=== PATIENT | male | born 1945 | race Caucasian/White ===

== ENCOUNTER 2018-10-30 10:00 | Outpatient (RCR) | payer MEDICARE, OTHER, SELFPAY ==
--- NOTE | 2018-09-26 13:28 | PT.OIE ---
Current Diagnoses Malignant neoplasm of prostate (09/24/18) Stress incontinence (female) (male) (09/24/18) Provider Visit Care Team Role Provider Type Hemant Pennington MD Family Provider Non-Staff Primary Care Provider Specialty: Medical Address: [address] [place] [address], [place], [address] Email: Thanh Simon Attending Provider Non-Staff Specialty: Urology Address: [address] [place] [address], [address] Email: Physical Therapy Initial Evaluation PT-OP-A Visit Information Start: 09/25/18 13:58 Freq: Status: Active Protocol: Document 09/24/18 14:30 [facility] (Rec: 09/25/18 14:00 [facility] [email or web address]) Out-Patient Physical Therapy Visit Information Visit Information Visit Type Initial Evaluation Visit Note 73 year old male 4 months status post radical prostectomy with residual urinary incontinence Visit Start Time 13:45 Visit Stop Time 14:30 Total Visit Minutes 45 Visit Number 1 Evaluation Information Evaluation Date 09/24/18 PT-OP-B Current Condition Start: 09/25/18 13:58 Freq: Status: Active Protocol: Document 09/24/18 13:45 [facility] (Rec: 09/26/18 13:28 [facility] [email or web address]) Current Condition History of Current Condition Onset Date s/p RALP 05/09/18 Current Complaints urinary incontinence, using 2 pads per day, depends at night History of Current Condition 73 year male who under went prostate surgery 05/09/18 with resulting urinary incontinence . He reports his symptoms have been slightly improved since surgery but he is still noting leakage at night and is wearing depends. He also reports if he has been sitting to long and he goes to stand he will notice leakage. Leakage also occurs with walking and he is trying to walk 2-3 miles per day. Shawn reports he goes through 2 pads per day. PT-OP-I Pelvic Floor Start: 09/25/18 13:58 Freq: Status: Active Protocol: Document 09/24/18 13:45 [facility] (Rec: 09/26/18 13:28 [facility] [email or web address]) Pelvic Floor Assessment Urine Pelvic Floor Surgery No Urinary Symptoms Urge Sensation Leakage Size Medium Leakage Cause Exercise Other Leakage Causes leakage occurs at night , wearing depends Pads Used In 24 Hours 2 pads Urine Pad Type Maxi Pad Depends Pelvic Clock Pelvic Clock Other rectal examination reveals weakness of the levator ani, no c/o pain SEMG (uV) Baseline 8.5 10 Second Contraction 9.5 Recruitment Pattern Fair Relaxation Poor/Slow Holding Poor/Slow Stability of Hold Poor/Slow SEMG Stability of Rest Poor/Slow Contraction Ability Voluntary Contraction Weak Voluntary Relaxation Weak Manual Muscle Testing Left 2 Manual Muscle Testing Right 2 Manual Muscle Testing Anterior 2 Manual Muscle Testing Posterior 2 Muscle Endurance (Seconds) 3 Number of Quick Contractions In 10 4 Seconds Comments Pelvic Floor Comments pelvic floor evaluated rectally today, with EMG biofeedback average contraction is 9.6 uv and max of 25.9 uv. His resting tone is 8.5 uv PT-OP-Q Treatments Start: 09/25/18 13:58 Freq: Status: Active Protocol: Document 09/24/18 13:45 [facility] (Rec: 09/26/18 13:28 [facility] [email or web address]) Therapeutic Exercises Supine Exercises 1 Supine Exercise Name pelvic floor long holds Side bilateral Reps/Minutes 10 seconds on 10 seconds off x 10 reps PT-OP-T Assessment and Plan Start: 09/25/18 13:58 Freq: Status: Active Protocol: Document 09/24/18 13:45 [facility] (Rec: 09/26/18 13:28 [facility] [email or web address]) Physical Therapy Assessment Rehab Potential Rehabilitation Potential Good Evaluation Complexity Number of Personal Factors/Comorbidities 0 Number of Body Systems Impaired 1-2 Clinical Presentation at Evaluation Stable Impairments Impairments Strength Tone Other Impairments urinary leakage Goals Four Impairment Decreased endurance of the levator ani at 4 second hold time Short Term Goal (STG) Improve endurance to 10 second hold time in supine STG Duration 5 weeks Three Impairment weakness of the levator ani 2/ 5 MMT Short Term Goal (STG) Shawn is able to demonstrate improved facilitation of the pelvic floor and he is able to feel the anterior pelvic floor with a contraction STG Duration 4 weeks Senior Hardware Design Engineer Goal (LTG) Improve strength of the pelvic floor to 4/5 MMT for improved support of the bladder and external sphincter. LTG Duration 8 weeks Two Impairment urinary leakage at night, wearing depends at night Senior Hardware Design Engineer Goal (LTG) Shawn is able to sleep through the night staying dry and without using depends LTG Duration 8 weeks + One Impairment urinary leakage during the day limiting activity Senior Hardware Design Engineer Goal (LTG) Decrease leakage from use of 2 pads per day to no pads per day LTG Duration 8 weeks Assessment Summary Assessment Shawn presents to physical therapy today with symptoms of urinary incontinence following his RALP procedure 05/09/18. He reports that he has noticed some improvement with his incontinence since surgery but it has been slow and he is seeking out Physical Therapy to help improve the strength of his pelvic floor for improved control of his bladder. He is currently going through approximately 2 pads per day and is wearing depends at night. Leakage during the day occurs with transitions from sit-stand and with walking. With pelvic floor examination there is considerable weakness in the levator ani athough is he able to contract throught the rectal clock. He tends to substitute with his gluteals and needed verbal cuing today to isolate the pelvic floor. He is also elevated in his resting tone today at 8.5 uv on EMG biofeedback. Treatment will emphazise neuromuscular awareness of the pelvic floor, endurance training, EMG biofeedback for assistance in facilitating the pelvic floor, and progression to functional dynamic core stabilization. Physical Therapy Plan Frequency and Duration Frequency of Treatment 1x/Week Duration of Treatment 8 Plan of Care Start Date 09/24/18 Plan of Care End Date 11/19/18 Therapeutic Interventions Therapeutic Interventions Home Exercise Program Neuromuscular Re-education Patient/Caregiver Education Self-Care/Home Management Therapeutic Exercises Modalities Biofeedback Next Visit Focus/Plan Next Note Type Treatment Note Next Visit Plan Begin working on hip stabilization to help with pelvic floor recruitment
--- NOTE | 2018-09-26 13:29 | PT.OPPOC ---
Current Diagnoses Malignant neoplasm of prostate (09/24/18) Stress incontinence (female) (male) (09/24/18) Provider Visit Care Team Role Provider Type Hemant Pennington MD Family Provider Non-Staff Primary Care Provider Specialty: Medical Address: [address] [place] [address], [place], [address] Email: Thanh Simon Attending Provider Non-Staff Specialty: Urology Address: [address] [place] [address], [address] Email: Plan Of Care PT-OP-T Assessment and Plan Start: 09/25/18 13:58 Freq: Status: Active Protocol: Document 09/24/18 13:45 [facility] (Rec: 09/26/18 13:28 [facility] [email or web address]) Physical Therapy Assessment Rehab Potential Rehabilitation Potential Good Evaluation Complexity Number of Personal Factors/Comorbidities 0 Number of Body Systems Impaired 1-2 Clinical Presentation at Evaluation Stable Impairments Impairments Strength Tone Other Impairments urinary leakage Goals Four Impairment Decreased endurance of the levator ani at 4 second hold time Short Term Goal (STG) Improve endurance to 10 second hold time in supine STG Duration 5 weeks Three Impairment weakness of the levator ani 2/ 5 MMT Short Term Goal (STG) Shawn is able to demonstrate improved facilitation of the pelvic floor and he is able to feel the anterior pelvic floor with a contraction STG Duration 4 weeks Halfway Goal (LTG) Improve strength of the pelvic floor to 4/5 MMT for improved support of the bladder and external sphincter. LTG Duration 8 weeks Two Impairment urinary leakage at night, wearing depends at night Halfway Goal (LTG) Shawn is able to sleep through the night staying dry and without using depends LTG Duration 8 weeks + One Impairment urinary leakage during the day limiting activity Halfway Goal (LTG) Decrease leakage from use of 2 pads per day to no pads per day LTG Duration 8 weeks Assessment Summary Assessment Shawn presents to physical therapy today with symptoms of urinary incontinence following his RALP procedure 05/09/18. He reports that he has noticed some improvement with his incontinence since surgery but it has been slow and he is seeking out Physical Therapy to help improve the strength of his pelvic floor for improved control of his bladder. He is currently going through approximately 2 pads per day and is wearing depends at night. Leakage during the day occurs with transitions from sit-stand and with walking. With pelvic floor examination there is considerable weakness in the levator ani although is he able to contract throughout the rectal clock. He tends to substitute with his gluteals and needed verbal cuing today to isolate the pelvic floor. He is also elevated in his resting tone today at 8.5 uv on EMG biofeedback. Treatment will emphasize neuromuscular awareness of the pelvic floor, endurance training, EMG biofeedback for assistance in facilitating the pelvic floor, and progression to functional dynamic core stabilization. Physical Therapy Plan Frequency and Duration Frequency of Treatment 1x/Week Duration of Treatment 8 Plan of Care Start Date 09/24/18 Plan of Care End Date 11/19/18 Therapeutic Interventions Therapeutic Interventions Home Exercise Program Neuromuscular Re-education Patient/Caregiver Education Self-Care/Home Management Therapeutic Exercises Modalities Biofeedback Next Visit Focus/Plan Next Note Type Treatment Note Next Visit Plan Begin working on hip stabilization to help with pelvic floor recruitment Plan of Care Dates Plan of Care Start Date 09/24/18 Plan of Care End Date 11/19/18 Please Sign and Return: I have reviewed this Plan of Care and certify that the skilled therapy services above are required to meet the patient?s needs. Physician Signature Date Printed Name and Credentials Clinical Instructor Signature Printed Name and Credentials
--- NOTE | 2018-10-16 14:08 | PT.OTN ---
Current Diagnoses Malignant neoplasm of prostate (10/16/18) Stress incontinence (female) (male) (10/16/18) Physical Therapy Treatment Note PT-OP-A Visit Information Start: 09/25/18 13:58 Freq: Status: Active Protocol: Document 10/16/18 14:02 [facility] (Rec: 10/16/18 14:07 [facility] [email or web address]) Out-Patient Physical Therapy Visit Information Visit Information Visit Type Re-Evaluation Visit Start Time 11:30 Visit Stop Time 12:15 Total Visit Minutes 45 Visit Number 2 PT-OP-B Current Condition Start: 09/25/18 13:58 Freq: Status: Active Protocol: Document 09/24/18 13:45 [facility] (Rec: 09/26/18 13:28 [facility] [email or web address]) Current Condition History of Current Condition Onset Date s/p RALP 05/09/18 Current Complaints urinary incontinence, using 2 pads per day, depends at night History of Current Condition 73 year male who under went prostate surgery 05/09/18 with resulting urinary incontinence . He reports his symptoms have been slightly improved since surgery but he is still noting leakage at night and is wearing depends. He also reports if he has been sitting to long and he goes to stand he will notice leakage. Leakage also occurs with walking and he is trying to walk 2-3 miles per day. Shawn reports he goes through 2 pads per day. PT-OP-C Subjective Start: 09/25/18 13:58 Freq: Status: Active Protocol: Document 10/16/18 14:07 [facility] (Rec: 10/16/18 14:08 [facility] [email or web address]) OP-PT Subjective Patient Comments Patient Comments Pt reports he is down to 1 pad per day now and is using that same pad at night. No longer c/o leaking with walking or with sit-stand transitions. He is happy he is progressing Patient Reported Progress Improving PT-OP-I Pelvic Floor Start: 09/25/18 13:58 Freq: Status: Active Protocol: Document 09/24/18 13:45 [facility] (Rec: 09/26/18 13:28 [facility] [email or web address]) Pelvic Floor Assessment Urine Pelvic Floor Surgery No Urinary Symptoms Urge Sensation Leakage Size Medium Leakage Cause Exercise Other Leakage Causes leakage occurs at night , wearing depends Pads Used In 24 Hours 2 pads Urine Pad Type Maxi Pad Depends Pelvic Clock Pelvic Clock Other rectal examination reveals weakness of the levator ani, no c/o pain SEMG (uV) Baseline 8.5 10 Second Contraction 9.5 Recruitment Pattern Fair Relaxation Poor/Slow Holding Poor/Slow Stability of Hold Poor/Slow SEMG Stability of Rest Poor/Slow Contraction Ability Voluntary Contraction Weak Voluntary Relaxation Weak Manual Muscle Testing Left 2 Manual Muscle Testing Right 2 Manual Muscle Testing Anterior 2 Manual Muscle Testing Posterior 2 Muscle Endurance (Seconds) 3 Number of Quick Contractions In 10 4 Seconds Comments Pelvic Floor Comments pelvic floor evaluated rectally today, with EMG biofeedback average contraction is 9.6 uv and max of 25.9 uv. His resting tone is 8.5 uv PT-OP-Q Treatments Start: 09/25/18 13:58 Freq: Status: Active Protocol: Document 10/16/18 14:02 [facility] (Rec: 10/16/18 14:07 [facility] [email or web address]) Therapeutic Exercises Supine Exercises 4 Supine Exercise Name roll outs with theraband Reps/Minutes 3 x 10 reps 3 Supine Exercise Name ball squeeze Reps/Minutes 3 x 10 reps 2 Supine Exercise Name pelvic floor quick contractions 1 Supine Exercise Name pelvic floor long holds Side bilateral Reps/Minutes 10 seconds on 10 seconds off x 10 reps Standing Exercises 1 Standing Exercise Name pelvic floor squeeze with functional activities such as sit to stand Self-Care/Home Management Treatment Education Patient Education Body Mechanics Home Exercise Program Other Education yanna mechanics education for exhale with contraction and proper lifting position to avoid downward strain on the pelvic floor Pelvic floor strengthening in functional positions such as squating PT-OP-T Assessment and Plan Start: 09/25/18 13:58 Freq: Status: Active Protocol: Document 10/16/18 14:02 [facility] (Rec: 10/16/18 14:07 [facility] [email or web address]) Physical Therapy Assessment Assessment Summary Assessment Good increase in pelvic floor strength in the past 3 weeks. His average on Biofeedback has increased to 22.6 uv and max of 48 uv today. Symptoms improving. No longer using depends at night and down to 1 pad per day. Pt may cut down to every other week as traveling from [facility] takes all day for him Physical Therapy Plan Frequency and Duration Frequency of Treatment 1x/Week Duration of Treatment 8 Plan of Care Start Date 09/24/18 Plan of Care End Date 11/19/18 Therapeutic Interventions Therapeutic Interventions Home Exercise Program Neuromuscular Re-education Patient/Caregiver Education Self-Care/Home Management Therapeutic Exercises Modalities Biofeedback Next Visit Focus/Plan Next Note Type Treatment Note Next Visit Plan review new exercises and work on functional exercises in standing
--- NOTE | 2018-10-30 14:31 | PT.OTN ---
Current Diagnoses Malignant neoplasm of prostate (10/30/18) Stress incontinence (female) (male) (10/30/18) Physical Therapy Treatment Note PT-OP-A Visit Information Start: 09/25/18 13:58 Freq: Status: Active Protocol: Document 10/30/18 10:00 [facility] (Rec: 10/30/18 10:01 [facility] [id number]) Out-Patient Physical Therapy Visit Information Visit Information Visit Type Treatment Note Visit Start Time 10:00 Visit Stop Time 10:45 Total Visit Minutes 45 Visit Number 3 Evaluation Information Evaluation Date 09/24/18 PT-OP-B Current Condition Start: 09/25/18 13:58 Freq: Status: Active Protocol: Document 09/24/18 13:45 [facility] (Rec: 09/26/18 13:28 [facility] [email or web address]) Current Condition History of Current Condition Onset Date s/p RALP 05/09/18 Current Complaints urinary incontinence, using 2 pads per day, depends at night History of Current Condition 73 year male who under went prostate surgery 05/09/18 with resulting urinary incontinence . He reports his symptoms have been slightly improved since surgery but he is still noting leakage at night and is wearing depends. He also reports if he has been sitting to long and he goes to stand he will notice leakage. Leakage also occurs with walking and he is trying to walk 2-3 miles per day. Shawn reports he goes through 2 pads per day. PT-OP-C Subjective Start: 09/25/18 13:58 Freq: Status: Active Protocol: Document 10/30/18 10:01 [facility] (Rec: 10/30/18 10:05 [facility] [id number]) OP-PT Subjective Patient Comments Patient Comments Marginally better. Using one pad all day and all night, not soaked in the am. Goes a hour or two without a pad at all for periods in the afternoon. Not feeling like he is leaking that much at night. Still experiencing leaking with a really hard sneeze but it is not a whole lot. Patient Reported Progress Improving PT-OP-I Pelvic Floor Start: 09/25/18 13:58 Freq: Status: Active Protocol: Document 10/30/18 14:09 [facility] (Rec: 10/30/18 14:26 [facility] [email or web address]) Pelvic Floor Assessment SEMG (uV) Baseline 6.0 10 Second Contraction 22.6 Recruitment Pattern Fair Relaxation Fair Holding Fair Stability of Hold Fair SEMG Stability of Rest Fair Contraction Ability Voluntary Contraction Weak Voluntary Relaxation Moderate Manual Muscle Testing Left 3 Manual Muscle Testing Right 3 Manual Muscle Testing Anterior 3 Manual Muscle Testing Posterior 3 Muscle Endurance (Seconds) 3 Number of Quick Contractions In 10 6 Seconds Comments Pelvic Floor Comments improved EMG biofeedback average to 22.6 uv and max of 48 uv Resting tone 6.0 PT-OP-Q Treatments Start: 09/25/18 13:58 Freq: Status: Active Protocol: Document 10/30/18 14:27 [facility] (Rec: 10/30/18 14:29 [facility] [email or web address]) Therapeutic Exercises Supine Exercises 4 Supine Exercise Name roll outs with theraband Reps/Minutes 3 x 10 reps 3 Supine Exercise Name ball squeeze Reps/Minutes 3 x 10 reps 2 Supine Exercise Name pelvic floor quick contractions 1 Supine Exercise Name pelvic floor long holds Side bilateral Reps/Minutes 10 seconds on 10 seconds off x 10 reps Sidelying Exercises 1 Sidelying Exercise Name clam shells Reps/Minutes 3 x 10 reps Standing Exercises 4 Standing Exercise Name standing side steps with theraband Side bilateral Reps/Minutes 4xms at the bar stepping right all the way down then left 3 Standing Exercise Name standing mini lunges 2 Standing Exercise Name standing squats with pelvic floor activation on the return 1 Standing Exercise Name pelvic floor squeeze with functional activities such as sit to stand PT-OP-T Assessment and Plan Start: 09/25/18 13:58 Freq: Status: Active Protocol: Document 10/30/18 14:09 [facility] (Rec: 10/30/18 14:26 [facility] [email or web address]) Physical Therapy Assessment Goals Four Impairment Decreased endurance of the levator ani at 4 second hold time Short Term Goal (STG) Improve endurance to 10 second hold time in supine Analytics Senior Manager Goal (LTG) GOAL MET as of 10/30/18 Three Impairment weakness of the levator ani 3/ 5 MMT Short Term Goal (STG) Shawn is able to demonstrate improved facilitation of the pelvic floor and he is able to feel the anterior pelvic floor with a contraction GOAL MET 10/30/18 Analytics Senior Manager Goal (LTG) Improve strength of the pelvic floor to 4/5 MMT for improved support of the bladder and external sphincter. LTG Duration 8 weeks Two Impairment urinary leakage at night, wearing depends at night Analytics Senior Manager Goal (LTG) Shawn is able to sleep through the night staying dry and without using depends GOAL MET One Impairment urinary leakage during the day limiting activity Short Term Goal (STG) GOOD PROGRESS, BACK TO WALKING ROUTINE WITHOUT LEAKING OF 10/30/18 Jail Goal (LTG) Decrease leakage from use of 1 pad per day to no pads per day LTG Duration 8 weeks Assessment Summary Assessment Shawn is making steady progress with physical therapy . He is down to 1 pad per day now and is noting that he is staying dry at night. He has been back to his walking of 2. 5 miles per day and is not leaking with walking. Leaking will occur most often with a sit - stand movement. Shawn has shown a good increase in strength of his pelvic floor on EMG biofeedback and his endurance is improving. He would like to work on his own for a month with his home exercises and then check back for one additional appointment. Physical Therapy Plan Frequency and Duration Frequency of Treatment 1x/Week Duration of Treatment 8 Plan of Care Start Date 10/30/18 Plan of Care End Date 01/01/19 Therapeutic Interventions Therapeutic Interventions Home Exercise Program Neuromuscular Re-education Patient/Caregiver Education Self-Care/Home Management Therapeutic Exercises Modalities Biofeedback Next Visit Focus/Plan Next Note Type Treatment Note Next Visit Plan Recheck pelvic floor strength next visit and review all exercises
--- NOTE | 2019-07-10 15:04 | PT.OPDS ---
Current Diagnoses Malignant neoplasm of prostate (10/30/18) Stress incontinence (female) (male) (10/30/18) Visit Care Team Role Provider Type Hemant Pennington MD Family Provider Non-Staff Primary Care Provider Specialty: Medical Address: [address] [place] [address], [place], [address] Email: Thanh Simon Attending Provider Non-Staff Specialty: Urology Address: [address] [place] [address], [address] Email: Visit Number Visit Number 3 Discharge Summary PT-OP-B Current Condition Start: 09/25/18 13:58 Freq: Status: Active Protocol: Document 09/24/18 13:45 [facility] (Rec: 09/26/18 13:28 [facility] [email or web address]) Current Condition History of Current Condition Onset Date s/p RALP 05/09/18 Current Complaints urinary incontinence, using 2 pads per day, depends at night History of Current Condition 73 year male who under went prostate surgery 05/09/18 with resulting urinary incontinence . He reports his symptoms have been slightly improved since surgery but he is still noting leakage at night and is wearing depends. He also reports if he has been sitting to long and he goes to stand he will notice leakage. Leakage also occurs with walking and he is trying to walk 2-3 miles per day. Shawn reports he goes through 2 pads per day. PT-OP-C Subjective Start: 09/25/18 13:58 Freq: Status: Active Protocol: Document 10/30/18 10:01 [facility] (Rec: 10/30/18 10:05 [facility] [id number]) OP-PT Subjective Patient Comments Patient Comments Marginally better. Using one pad all day and all night, not soaked in the am. Goes a hour or two without a pad at all for periods in the afternoon. Not feeling like he is leaking that much at night. Still experiencing leaking with a really hard sneeze but it is not a whole lot. Patient Reported Progress Improving PT-OP-I Pelvic Floor Start: 09/25/18 13:58 Freq: Status: Active Protocol: Document 10/30/18 14:09 [facility] (Rec: 10/30/18 14:26 [facility] [email or web address]) Pelvic Floor Assessment SEMG (uV) Baseline 6.0 10 Second Contraction 22.6 Recruitment Pattern Fair Relaxation Fair Holding Fair Stability of Hold Fair SEMG Stability of Rest Fair Contraction Ability Voluntary Contraction Weak Voluntary Relaxation Moderate Manual Muscle Testing Left 3 Manual Muscle Testing Right 3 Manual Muscle Testing Anterior 3 Manual Muscle Testing Posterior 3 Muscle Endurance (Seconds) 3 Number of Quick Contractions In 10 6 Seconds Comments Pelvic Floor Comments improved EMG biofeedback average to 22.6 uv and max of 48 uv Resting tone 6.0 PT-OP-T Assessment and Plan Start: 09/25/18 13:58 Freq: Status: Active Protocol: Document 07/10/19 15:02 [facility] (Rec: 07/10/19 15:04 [facility] [email or web address]) Physical Therapy Plan Discharge Physical Therapy Discharge Reasons Patient Request Discharge Comments Shawn had made great progress with PT and at the time of his last visit was down to 1 pad per day and was staying dry at night. He felt good with his home program and was ready to discontinue PT
== END 2018-10-31 12:12 ==
LOC: PHYS 10:00
PROVIDERS: Family Provider Student in an Organized Health Care Education/Training Program; PCP Student in an Organized Health Care Education/Training Program; Visit Provider Urology
DX: N39.3 Stress incontinence (female) (male) (principal); C61 Malignant neoplasm of prostate
CPT/HCPCS: 97110; 97161; 97535

== ENCOUNTER 2020-12-15 09:45 | Day surgery (SDC) | payer MEDICARE, OTHER, SELFPAY ==
--- NOTE | 2020-12-08 10:56 | PM.PREOP ---
Pre-operative Note COVID-19 COVID-19 status: Negative Interval Note History & Physical reviewed/Exam performed by Physician: Yes Changes to H&P: No
--- NOTE | 2020-12-15 07:35 | P.OP_ITS ---
Operative Date/Time/Diagnoses Date of procedure: 12/15/20 Procedure & Clinicians Procedure: Preoperative diagnoses: 1. Right significant nuclear sclerotic and cortical cataract. 2. Supraventricular arrhythmia. 3. History of prostate surgery without Flomax use. 4. Anxiety with eye phobia. Postoperative diagnoses: 1. Cataract removed by phacoemulsification with placement of posterior chamber intraocular lens. Procedure: Phacoemulsification with posterior chamber intraocular lens implant Surgeon: Heather Kim MD Complications: None Specimen: None Implant: DIBOO+19.0 Blood loss: None Anesthesia: Retrobulbar with monitored standby Description of procedure: Patient presents with a complaint of decreased vision due to cataract which is affecting activities of daily living. The patient wants surgery to improve vision. The patient was taken to the operating room and given IV sedation. A retrobulbar block consisting of 6 cc of 2% xylocaine without epinephrine mixed half and half with 0.5% Marcaine with 1 cc of hyaluronidase added is placed between the medial and lateral 1/3 of the inferior orbital rim. The eye is manually massaged for 30 sec, prepped using Betadine solution, and draped in the usual sterile fashion. Temporal approach was made, a 1 mm side-port incision was made 90? from the proposed clear corneal incision position. Phenylephrine 1.5% mixed with 1% xylocaine 0.2 cc was placed into the anterior chamber. Viscoat followed by Grace was then placed. A 2.6 mm clear incision with a 2.6 mm blade was placed. A 360 degree capsulorrhexis style capsulotomy was then performed with a cystitome needle on a Healon. Hydrodelineation and hydrodissection were performed. The phacoemulsification unit is introduced, and sculpting notice used to groove the central lens. It is then removed in chopping mode. Epi nucleus is removed with epinuclear mode and irrigation aspiration was used to remove the peripheral cortex. The posterior capsule is polished. The intraocular lens is selected, inspected, power confirmed, and placed in the posterior chamber. The wound was stromally hydrated and tested for leaks, there was none and it was left sutureless. Vigamox 0.1 cc was placed into the anterior chamber. Kenalog 0.2 cc was placed in the superior subconjunctival space. A drop of antibiotic and was placed and the eye was patched and shielded. The patient was stable and returned to the recovery room in excellent condition. Dictated by: Heather Kim MD Copy to: [facility] Same procedure as scheduled: Yes
[2020-12-15 10:12] VITALS: BP 152/80; PULSE 69; RESP 18; TEMP 37; O2SAT 98; BMI 29.5
[2020-12-15] MEDS: CATARACT EYE COMPOUND (10 DROPS/SYRINGE) 3 DROPS EYE-OP (10:26)
[2020-12-15] MEDS: PROPARACAINE 0.5% OPHTH SOL 2 DROPS EYE-OP (10:26)
--- NOTE | 2020-12-15 11:24 | SUR.OPER ---
Supine on eye stretcher, head on extension cradle secured with tape. Arms tucked at sides with blanket. Pillow under knees.
[2020-12-15] MEDS: ERYTHROMYCIN OPHTH 1 GM OINT 1 APPLIC EYE-RIGHT (12:16)
[2020-12-15] MEDS: PHENYLEPHRINE/LIDOCAINE VIAL (OR) 0.2 ML EYE-OP (12:17)
[2020-12-15] MEDS: MOXIFLOXACIN INJ 4 MG/0.8 ML VIAL 0.5 MG EYE-OP (12:17)
[2020-12-15] MEDS: TRIAMCINOLONE 50 MG/5 ML VIAL INJ (12:18)
[2020-12-15] MEDS: LIDOCAINE 2% 4 ML, BUPIVACAINE 0.5% (PF) 4 ML, HYALURONIDASE 150 UNIT INJ (12:18)
[2020-12-15] MEDS: BALANCED SALT IRRIG SOLN NO.2 500 ML, EPINEPHrine 1 MG IRR (12:19)
[2020-12-15 12:55] VITALS: BP 156/78; PULSE 69; RESP 18; TEMP 36.3; O2SAT 97
== END 2020-12-15 13:07 | disposition home or self-care (01) ==
LOC: OR 09:47
PROVIDERS: Family Provider Student in an Organized Health Care Education/Training Program; PCP Student in an Organized Health Care Education/Training Program; Referring Provider Ophthalmology; Visit Provider Ophthalmology
PROC: (CPT 66984; principal; 2020-12-15 11:45)
DX: H25.811 Combined forms of age-related cataract, right eye (principal); F41.9 Anxiety disorder, unspecified; I49.8 Other specified cardiac arrhythmias
CPT/HCPCS: 66984; J0171; J2704; J3301; J3470

== ENCOUNTER → 2022-06-26 08:05 | Outpatient (CLI) | payer MEDICARE, OTHER, SELFPAY ==
--- NOTE | 2022-06-26 21:08 | DI.NM.S_ITS ---
DATE OF SERVICE: PROCEDURE: Exercise stress test. INDICATION: Shortness of breath, underlying hypertension. RADIOPHARMACEUTICAL: 24.8 millicurie technetium-99m Myoview IV was injected at stress and 12.5 millicurie technetium-99m Myoview IV was injected at rest. CARDIAC STRESS: The patient underwent exercise stress test under the supervision of an attending staff using standard intravenous Lexiscan, as per protocol. Total exercise time 4 minutes, 52 seconds, achieved maximum heart rate of 153, which was 108 percent of target heart rate. LAURA positive 27 percent. Resting blood pressure 168/88 and peak blood pressure 193/90 mmHg. Baseline rhythm was sinus with some nonspecific ST-T changes. During exercise, no convincing new ischemic changes seen. No significant arrhythmias, other than rare PVCs. No anginal symptoms. The patient felt dyspnea and fatigue during exercise. RAW DATA: Increased subdiaphragmatic activity. GATED STUDY: Resting LV ejection fraction 68 and stress LV ejection fraction 75 percent. No significant wall motion abnormalities. Resting end-diastolic volume 82 mL. TID ratio 0.95, which is within normal limits. Lung/heart ratio 0.34, which is within normal limits. MYOCARDIAL PERFUSION SCAN: Stress supine, resting supine and stress prone images were compared to each other. Resting supine images revealed small size, mildly decreased perfusion of distal anteroseptum, as well as distal inferolateral wall, however stress supine and stress prone images revealed normal myocardial perfusion. Stress summed score 0. CONCLUSION: This is a normal myocardial perfusion study without any convincing ischemia or infarction pattern. Diminished exercise tolerance. Hypertensive to begin with, with resting blood pressure 168/88 mmHg. Peak blood pressure 193/90 mmHg. No complex arrhythmias. No chest pain, but had shortness of breath. Left ventricular function is preserved. In absence of ischemia or infarction and preserved left ventricular function, overall low-risk myocardial perfusion scan. Correlate clinically. Shawn Ayers - [facility] doc#: [id number]/job#: [id number] dd: 06/26/2022 16:49:00 dt: 06/26/2022 20:48:00 DICTATING MD/COPIES TO: Sabrina Kincaid MD COPIES MNE: REJI;
== END ==
PROVIDERS: Family Provider Student in an Organized Health Care Education/Training Program; PCP Student in an Organized Health Care Education/Training Program; Referring Provider Nurse Practitioner; Visit Provider Nurse Practitioner
DX: I25.10 Atherosclerotic heart disease of native coronary artery without angina pectoris (principal); R06.02 Shortness of breath; I10 Essential (primary) hypertension
CPT/HCPCS: 78452; 93017; A9502

== ENCOUNTER → 2024-12-03 10:10 | Outpatient (CLI) | payer MEDICARE, OTHER, SELFPAY ==
--- NOTE | 2024-12-03 10:12 | DI.RAD.S_ITS ---
PROCEDURE: XR LUMBAR SPINE MIN 4V INDICATIONS: BACK PAIN TECHNIQUE: 5 views of the lumbar spine were acquired, including bilateral oblique views. COMPARISON: None. FINDINGS: Bones: 5 nonrib-bearing vertebrae are present. There is trace, approximately 3 millimeters of L1-L2, L2-L3 and L3-L4 retrolisthesis. There is mild, approximately 5 millimeters of L4-L5 retrolisthesis. No vertebral body compression fractures. No suspicious bony lesions. Moderate L5-S1 degenerative disc disease. Mild L1-L2, L2-L3, L3-L4 and L4-L5 degenerative disc disease. Moderate L3-L4, L4-L5 and L5-S1 facet arthropathy. Mild L1-L2 and L2-L3 facet arthropathy. Soft tissues: Overlying bowel gas pattern is normal. No suspicious soft tissue calcifications. Oblique images: No pars defects. IMPRESSION: Multilevel degenerative disc disease. Multilevel facet arthropathy. No fracture. No acute osseous lesion. If symptoms and/or clinical suspicion for pathology persists, evaluation with MRI should be considered for further assessment. Dictated by: Nicole George MD, PhD on 12/03/2024 at 11:15 Approved by: Nicole George MD, PhD on 12/03/2024 at 11:16
== END ==
PROVIDERS: Family Provider Student in an Organized Health Care Education/Training Program; PCP Student in an Organized Health Care Education/Training Program; Referring Provider Physical Medicine & Rehabilitation; Visit Provider Physical Medicine & Rehabilitation
DX: M47.816 Spondylosis without myelopathy or radiculopathy, lumbar region (principal); M48.061 Spinal stenosis, lumbar region without neurogenic claudication
CPT/HCPCS: 72110; 99214